=== PATIENT | male | born 1995 | race Two or more races ===

== ENCOUNTER 2017-06-14 19:07 | Emergency (ER) | payer SELFPAY ==
[~2017-06-14] VITALS: Ht 175.3 cm; Wt 76.2 kg
[2017-06-14 21:11] VITALS: BP 118/69
== END 2017-06-14 22:08 | disposition home or self-care (01) ==
LOC: ER 19:17
DX: S13.4XXA Sprain of ligaments of cervical spine, initial encounter (principal); V49.49XA Driver injured in collision with other motor vehicles in traffic accident, initial encounter; Y93.89 Activity, other specified; Y99.8 Other external cause status; Y92.410 Unspecified street and highway as the place of occurrence of the external cause
CPT/HCPCS: 72040; 72070; 72100

== ENCOUNTER 2022-02-01 18:36 | Emergency (ER) | payer SELFPAY | END 2022-02-01 20:12 | disposition left against medical advice (07) | LOC: ER 18:36 | DX: S05.32XA Ocular laceration without prolapse or loss of intraocular tissue, left eye, initial encounter (principal); Z53.21 Procedure and treatment not carried out due to patient leaving prior to being seen by health care provider; X58.XXXA Exposure to other specified factors, initial encounter; Y93.89 Activity, other specified; Y92.89 Other specified places as the place of occurrence of the external cause; Y99.8 Other external cause status ==